=== PATIENT | male | born 1960 | race Caucasian/White ===

== ENCOUNTER 2019-04-05 21:56 | Observation (INO) ==
--- NOTE | 2019-04-05 22:07 | Diag Imaging Result Doc PS360 ---
EXAM: CT HEAD W/O CONTRAST HISTORY: ams TECHNIQUE: CT head without contrast COMPARISON: None. FINDINGS: No parenchymal hemorrhage. No epidural or subdural hematoma. No subarachnoid hemorrhage. No mass identified on this noncontrasted exam. No hydrocephalus. Right mastoid opacification with fluid in the inner anterior. IMPRESSION: 1.No hemorrhage 2.Fluid in the right inner ear and mastoid sinus This exam was performed using automated exposure control, adjustment of mA or kV according to patient size, and/or use of iterative reconstruction technique. Electronically signed by Benitez Henson 04/05/2019 10:05 PM
[2019-04-05 22:28] LABS: BASO# 0.07 X1000 (0.0-0.2); BASO% 0.3 % (0.0-0.8); EOS# 0.76 X1000 (0.0-0.7); EOS% 3.4 % (0.0-10.0); HEMOGLOBIN 15.5 g/dL (14.0-18.0); IMM GRAN# 0.11 X1000 (0.0-0.04); IMM GRAN% 0.5 % (0.0-0.5); LYMPH# 4.45 X1000 (1.2-3.4); LYMPH% 20.1 % (20.5-51.1); MCH 29.4 PG (27-31); MCHC 32.3 g/dL (33-37); MCV 91.1 FL (81-99); MONO# 2.49 X1000 (0.11-0.59); MONO% 11.2 % (1.7-9.3); MPV 10.5 FL (7.4-10.4); NEUT# 14.27 X1000 (1.4-6.5); NEUT% 64.5 % (42.2-75.2); PLT 304 X1000 (130-400); RBC 5.27 XMIL (4.7-6.1); RDW 13.7 % (11.5-14.5); WBC 22.15 X1000 (4.8-10.8)
[2019-04-05 22:30] LABS: BE -17.7 mmoll (-3.0-3.0); BLOOD TYPE ARTERIAL; METHB 1.1 % (0.0-1.5); O2(CT) 21.5 mL/dL (15.0-23.0); O2HB 94.6 % (95.0-99.0); PCO2(98.6) 31 mmHg (35-45); PO2(98.6) 99 mmHg (60-100); SAMPLE BLOOD; SAO2 98.1 % (95.0-100.0); THB 16.1 g/dL (11.5-17.4)
[2019-04-05 22:39] LABS: pH(98.6) 7.13 (7.35-7.45)
[2019-04-05 22:40] LABS: ALLEN TEST YES; MODALITY ROOM AIR
[2019-04-05 23:06] LABS: ALBUMIN 4.5 g/dL (3.5-5.0); CALCIUM 9.9 mg/dL (8.8-10.2); CREATININE 1.7 mg/dL (0.7-1.2); POTASSIUM 4.3 mmol/L (3.5-5.1); TOTAL BILIRUBIN 0.6 mg/dL (0.20-1.00)
[2019-04-05 23:25] LABS: CK INDEX 1.6 (0.0-2.5); CK-MB 3.87 ng/mL (0.0-5.0)
[2019-04-06 01:07] LABS: BE -0.3 mmoll (-3.0-3.0); BLOOD TYPE ARTERIAL; HCO3-(ACT) 24.6 mmoll (20.0-26.0); METHB 1.1 % (0.0-1.5); O2(CT) 20.7 mL/dL (15.0-23.0); O2HB 94.5 % (95.0-99.0); PCO2(98.6) 38 mmHg (35-45); PO2(98.6) 79 mmHg (60-100); SAMPLE BLOOD; SAO2 97.6 % (95.0-100.0); THB 15.6 g/dL (11.5-17.4); pH(98.6) 7.41 (7.35-7.45)
[2019-04-06 01:09] LABS: ALLEN TEST YES; MODALITY ROOM AIR
[2019-04-06 01:35] LABS: UR AMPHETAMINES QUAL NONE DETECTED (NONE DETECT); UR BARBITUATES QUAL NONE DETECTED (NONE DETECT); UR BENZODIAZEPIN QUAL NONE DETECTED (NONE DETECT); UR CANNABINOIDS QUAL NONE DETECTED (NONE DETECT); UR COCAINE QUAL NONE DETECTED (NONE DETECT); UR METHADONE QUAL NONE DETECTED (NONE DETECT); UR METHAMPHETAMINE QUAL NONE DETECTED (NONE DETECT); UR OPIATES QUAL NONE DETECTED (NONE DETECT); UR OXYCODONE QUAL NONE DETECTED (NONE DETECT); UR PCP QUAL NONE DETECTED (NONE DETECT); UR PROPOXYPHENE QUAL NONE DETECTED (NONE DETECT); UR TCA QUAL NONE DETECTED (NONE DETECT)
[2019-04-06 02:18] LABS: ALBUMIN 4.3 g/dL (3.5-5.0); CALCIUM 9.6 mg/dL (8.8-10.2); CREATININE 1.5 mg/dL (0.7-1.2); POTASSIUM 3.6 mmol/L (3.5-5.1); TOTAL BILIRUBIN 0.5 mg/dL (0.20-1.00); TOTAL PROTEIN 7.2 g/dL (6.3-8.3)
--- NOTE | 2019-04-06 03:52 | EKG Report ---
Test Performed on : 04/05/2019 10:07:57 PM Test Reason : emboli Blood Pressure : / mmHG Vent. Rate : 105 BPM Atrial Rate : 105 BPM P-R Int : 140 ms QRS Dur : 092 ms QT Int : 358 ms P-R-T Axes : 068 013 042 degrees QTc Int : 473 ms Sinus tachycardia. Otherwise normal ECG When compared with ECG of 08-OCT-2017 16:24, QT has lengthened Unconfirmed Result
--- NOTE | 2019-04-06 05:36 | Diag Imaging Result Doc PS360 ---
EXAM: CHEST-2 VIEWS HISTORY: cough TECHNIQUE: Two views COMPARISON: 11/11/2018 FINDINGS: The lungs are well expanded. The heart is not enlarged. The vessels are not distended. There are no infiltrates. No pleural effusions. IMPRESSION: No pneumonia Electronically signed by Benitez Henson 04/06/2019 5:34 AM
--- NOTE | 2019-04-06 08:39 | EKG Report ---
Test Performed on : 04/06/2019 07:17:48 AM Test Reason : emboli Blood Pressure : / mmHG Vent. Rate : 086 BPM Atrial Rate : 086 BPM P-R Int : 134 ms QRS Dur : 088 ms QT Int : 378 ms P-R-T Axes : 058 015 034 degrees QTc Int : 452 ms Normal sinus rhythm. Normal ECG When compared with ECG of 05-APR-2019 22:07, (Unconfirmed) No significant change was found Unconfirmed Result
[2019-04-06 08:56] LABS: CALCIUM 9.6 mg/dL (8.8-10.2); CREATININE 1.3 mg/dL (0.7-1.2); TOTAL BILIRUBIN 0.6 mg/dL (0.20-1.00); TOTAL PROTEIN 7.1 g/dL (6.3-8.3)
[2019-04-06 09:10] LABS: BASO# 0.02 X1000 (0.0-0.2); BASO% 0.1 % (0.0-0.8); EOS# 0.13 X1000 (0.0-0.7); EOS% 0.9 % (0.0-10.0); HEMATOCRIT 44.7 % (42.0-52.0); HEMOGLOBIN 14.8 g/dL (14.0-18.0); IMM GRAN# 0.03 X1000 (0.0-0.04); IMM GRAN% 0.2 % (0.0-0.5); LYMPH# 1.34 X1000 (1.2-3.4); LYMPH% 9.6 % (20.5-51.1); MCH 29.1 PG (27-31); MCHC 33.1 g/dL (33-37); MONO# 1.66 X1000 (0.11-0.59); MONO% 11.8 % (1.7-9.3); MPV 10.8 FL (7.4-10.4); NEUT# 10.84 X1000 (1.4-6.5); NEUT% 77.4 % (42.2-75.2); PLT 194 X1000 (130-400); RBC 5.08 XMIL (4.7-6.1); RDW 13.8 % (11.5-14.5); WBC 14.02 X1000 (4.8-10.8)
[2019-04-06 09:14] LABS: CK INDEX 0.7 (0.0-2.5); CK-MB 3.92 ng/mL (0.0-5.0)
[2019-04-06] MEDS ORDERED: ATIVAN IV PRN (10:39)
[2019-04-06] MEDS: COREG PO SCH (12:04)
[2019-04-06] MEDS: AMOXIL PO SCH ×2 (12:04→21:25)
[2019-04-06] MEDS: ZYLOPRIM PO SCH (12:05)
[2019-04-06] MEDS: FLAGYL PO SCH ×2 (12:05→21:26)
[2019-04-06] MEDS: TRADJENTA PO SCH (12:05)
[2019-04-06] MEDS: NS 1,000 ML IV SCH ×2 (12:05→23:10)
--- NOTE | 2019-04-06 12:43 | HISTORY AND PHYSICAL ---
PRIMARY CARE PHYSICIAN: KATHERYN Reyes. CHIEF COMPLAINT: Seizure, new onset. HISTORY OF PRESENTING ILLNESS: This is a 59-year-old male who presents to [facility] ER via EMS after he had a witnessed seizure at home with his . The stated that he began shaking, but was able to talk and asked her to call 911. He apparently, on the first of the week, was diagnosed by Dr. Fay with an Helicobacter pylori, and was also told he had Giardia, was placed on amoxicillin and Biaxin, and started those on Wednesday, and then Wednesday had his first ever seizure-like activity. In the ambulance service, they said he had a full-blown grand mal seizure. He did bite the left side of his tongue, but did not have any urinary incontinence. When he arrived to the emergency room, he was mildly altered with some confusion and disorientation noted. Currently, he is alert and awake and oriented x3, and answers all questions appropriately, and so he was admitted for further evaluation and treatment. PAST MEDICAL HISTORY: Hypertension, hyperlipidemia, GERD, chronic back pain, and neuropathy. PAST SURGICAL HISTORY: None. FAMILY HISTORY: Reviewed and noncontributory. SOCIAL HISTORY: He currently lives with family. Chews tobacco. Denies any alcohol or illicit drug use. ALLERGIES: Codeine. HOME MEDICATIONS: He takes lisinopril/hydrochlorothiazide 20/25 p.o. daily. We will hold his Biaxin 500 mg p.o. every 6 hours. He takes allopurinol 300 mg p.o. daily, amoxicillin 500 mg p.o. b.i.d., Lipitor 40 mg p.o. at bedtime, carvedilol 3.125 mg p.o. daily, lansoprazole 30 mg p.o. daily, and Tradjenta 5 mg p.o. daily. IMAGING AND LABORATORY DATA: Laboratory data showed a white blood cell count of 22.15, hemoglobin 15.5, hematocrit 48, platelets 304,000. Repeat labs this morning showed his white blood cell count was down to 14.02. His ABG on arrival showed a pH of 7.13, pCO2 of 31, PO2 of 99, bicarb 11, and this was on room air, with a lactate of 15.90. Repeat approximately 30 minutes later showed a pH of 7.41, pCO2 of 38, PO2 of 79, bicarb 24.6, lactate was 2.30, and this also was on room air. Sodium of 141, potassium 3.6, chloride 101, CO2 of 25, BUN of 18, creatinine 1.5, glucose 157. Plasma lactate was 2.9. Creatinine this morning is down to 1.3. Creatine kinase on arrival was 249. CK-MB of 3.87. This morning, his creatine kinase was 558, with a CK-MB of 3.92, with a negative troponin of less than 0.010. Urine drug screen showed none detected. Serum plasma alcohol level showed none detected. CT of the head showed no hemorrhage. He did have some fluid in the right inner ear and mastoid sinus. Chest x-ray showed no pneumonia. EKG showed sinus tachycardia at 105. REVIEW OF SYSTEMS: He denied any fever, chills, blurred vision, dizziness, chest pain, coughing, shortness of breath. He denied any abdominal pain, constipation, diarrhea, burning or hurting with urination. On arrival, he did have some confusion and was postictal. PHYSICAL EXAMINATION: VITAL SIGNS: On arrival, he had a temperature of 98.6 degrees, pulse 103, respirations 19, blood pressure 122/71, saturating 92% on room air. GENERAL: This is a 59-year-old male who is lying in the bed and answers questions appropriately. HEENT: Normocephalic, atraumatic. Normal ENT inspection. Oropharynx and nares are clear. Eyes: Pupils are equal, round, and reactive to light and accommodation. Extraocular movements are intact. NECK: Normal inspection. Normal range of motion. LUNGS: Clear to auscultation bilaterally with equal lung expansion and chest wall movement. HEART: Regular rate and rhythm. No murmurs, rubs, or gallops. ABDOMEN: Soft, nontender, nondistended. Bowel sounds are present x4 quadrants. MUSCULOSKELETAL: He had 5/5 strength x4 extremities. NEUROLOGICAL: Cranial nerves II through XII appear grossly intact. ASSESSMENT: 1. New-onset seizure, possibly secondary to antibiotic. 2. Leukocytosis, improved. 3. Recently diagnosed with Helicobacter pylori and Giardia per Dr. Fay of Gastroenterology. PLAN: He was admitted to the medical unit at [place], placed on neurologic checks every 4 hours. Pattern blood sugars with sliding scale insulin. We are going to do an EEG today. Give him Ativan 1 mg IV every 4 hours p.r.n. seizure activity. We are going to start him on Flagyl 500 mg p.o. every 8 hours, and continue his amoxicillin 500 mg p.o. b.i.d. I will stop the Biaxin, and recheck a CBC and BMP in the a.m. Further orders after being seen by attending. Dictated by KATHERYN Delgado for Rodrigo Shine MD cc: KATHERYN Delgado MD Stephanie Weems, CRNP
[2019-04-06] MEDS: HUMULIN R (PARKWAY) SUBQ SCH ×2 (16:17→21:26)
--- NOTE | 2019-04-06 18:45 | PROGRESS NOTE ---
DATE: 04/06/2019 Patient came in with a generalized tonic-clonic seizure last night. Really unclear what initiated it. He has been on H. pylori treatment, but I do not think any of these medications necessarily lower the seizure threshold. Neither do any of his home medications. He denies any alcohol abuse or drug use, but he did have lactic acidosis when he came in, low pH, all consistent with having had a recent seizure. He is a little bit dehydrated, creatinine insufficient. In any case patient was evaluated, placed in observation. We will continue his treatments for his H. pylori and Giardia and workup seizure with EEG and I will pursue MRI. He will need close follow up with Neurology. I explained to him the legal ramifications of having a seizure as far as driving restrictions in the [facility]. The patient is otherwise stable. We will continue to follow. DISPOSITION: Anticipate discharge hopefully in next 24 hours. [id number] encounter note with Caitlyn Bentley. cc: Rodrigo Shine MD MTDD
[2019-04-06] MEDS ORDERED: LIPITOR PO SCH (21:00)
[2019-04-07] MEDS: FLAGYL PO SCH (05:18)
[2019-04-07 05:50] VITALS: BP 133/78
[2019-04-07 06:04] LABS: BASO# 0.02 X1000 (0.0-0.2); BASO% 0.2 % (0.0-0.8); EOS% 3.6 % (0.0-10.0); HEMATOCRIT 41.2 % (42.0-52.0); HEMOGLOBIN 13.6 g/dL (14.0-18.0); IMM GRAN# 0.02 X1000 (0.0-0.04); IMM GRAN% 0.2 % (0.0-0.5); LYMPH# 1.95 X1000 (1.2-3.4); LYMPH% 17.7 % (20.5-51.1); MCH 29.7 PG (27-31); MONO# 1.45 X1000 (0.11-0.59); MONO% 13.1 % (1.7-9.3); MPV 10.7 FL (7.4-10.4); NEUT# 7.19 X1000 (1.4-6.5); NEUT% 65.2 % (42.2-75.2); PLT 193 X1000 (130-400); RBC 4.58 XMIL (4.7-6.1); WBC 11.03 X1000 (4.8-10.8)
[2019-04-07] MEDS: HUMULIN R (PARKWAY) SUBQ SCH (06:15)
[2019-04-07 06:50] LABS: CALCIUM 9.2 mg/dL (8.8-10.2); CREATININE 1.3 mg/dL (0.7-1.2); POTASSIUM 4.4 mmol/L (3.5-5.1)
[2019-04-07] MEDS ORDERED: HYDROCHLOROTHIAZIDE PO SCH (09:00)
[2019-04-07] MEDS ORDERED: PRINIVIL PO SCH (09:00)
[2019-04-07] MEDS ORDERED: NON-FORMULARY MED (Lisinopril/Hydrochlorothiazide [Lisinopril-Hctz 20-25 Mg Tab] 20 MG) PO SCH (09:00)
[2019-04-07] MEDS ORDERED: PRILOSEC PO SCH (09:00)
--- NOTE | 2019-04-07 10:19 | Diag Imaging Result Doc PS360 ---
EXAM: MRI BRAIN W/WO CONTRAST INDICATION: seizure COMPARISON: CT head dated 04/05/2019. No prior MRI brain is available for comparison. FINDINGS: There is no evidence of acute infarct. There is very minimal patchy T2/FLAIR hyperintensity in the periventricular white matter suggesting trace microangiopathy. There is no discrete intracranial mass, mass effect, or intracranial hemorrhage. There is no evidence of abnormal intracranial enhancement. There is a small right maxillary sinus mucus retention cyst and a right mastoid air cell effusion that can also be seen on the prior CT. Surrounding soft tissues and bony structures are essentially unremarkable, otherwise. IMPRESSION: 1.Suggestion of trace white matter microangiopathy. No evidence of acute intracranial pathology. 2.Incidental right mastoid air cell effusion. Electronically signed by Tani De Leon 04/07/2019 10:17 AM
[2019-04-07] MEDS: AMOXIL PO SCH (10:49)
[2019-04-07] MEDS: COREG PO SCH (10:49)
[2019-04-07] MEDS: ZYLOPRIM PO SCH (10:50)
[2019-04-07] MEDS: TRADJENTA PO SCH (10:50)
[2019-04-07] MEDS: NS 1,000 ML IV SCH (10:51)
--- NOTE | 2019-04-07 14:47 | DISCHARGE SUMMARY ---
ADMISSION DATE: 04/06/2019 DISCHARGE DATE: 04/07/2019 The patient came in with a seizure. It sounds like it was basically one episode or possibly one associated with a secondary episode. He has not had any further issues. Medications have made us concerned about possible seizure and the patient has had a negative workup. Head CT, MRI. I am still waiting on his EEG, but preliminarily I think it did not show any major issues. He is being treated for H. pylori and Giardia, but all that seems to be stable. He has got some mild renal insufficiency. I am not going to change any of his medications, kind of see how he does long-term and we will continue to follow. This is a [id number] encounter note with Caitlyn Bentley. cc: Rodrigo Shine MD
--- NOTE | 2019-04-07 14:53 | DISCHARGE SUMMARY ---
ADMISSION DATE: 04/06/2019 DISCHARGE DATE: 04/07/2019 PRIMARY CARE PHYSICIAN: KATHERYN Reyes. ADMISSION DIAGNOSES: 1. New onset seizures, possibly secondary to new antibiotic. 2. Leukocytosis, improved. 3. Recently diagnosed with a Helicobacter pylori and Giardia per Dr. Fay of Gastroenterology. DISCHARGE DIAGNOSES: 1. New onset seizures, possibly secondary to new antibiotic. 2. Leukocytosis, improved. 3. Recently diagnosed with a Helicobacter pylori and Giardia per Dr. Fay of Gastroenterology. SUMMARY OF FINDINGS: This is a 59-year-old male who presented to the ER via EMS after he had a witnessed seizure at home with his . Once he got into the ambulance, he had a full-blown grand mal seizure according to the ambulance service. By the time he arrived to the emergency room, he was alert and oriented x3. He did have some mild confusion and disorientation noted. He was noted to have bit the left side of his tongue, but did not have any urinary incontinence. He was admitted, placed on neuro checks q. 4 hours. We did a brain MRI that showed suggestion of trace white matter, micro angiopathy, but no evidence of acute intracranial pathology. We did an EEG also, but that is pending at this time. He has had no further seizure activity and is felt to be in stable condition and can be discharged home today. DISCHARGE MEDICATIONS: Continue his allopurinol 300 mg p.o. daily, amoxicillin 500 mg p.o. b.i.d., atorvastatin 40 mg p.o. at bedtime, carvedilol 3.125 mg p.o. b.i.d., lansoprazole 30 mg p.o. b.i.d., Tradjenta 5 mg p.o. daily, Biaxin 500 mg p.o. 4 times daily, lovastatin 20 mg p.o. daily, and Flagyl 250 mg p.o. t.i.d. FOLLOWUP: He will need to follow up with his primary care physician in the next 1 to 2 weeks and also call [facility] to follow up with Dr. Multani and his first available appointment. TIME SPENT: 35 minute discharge for Nael Reeves. Dictated by KATHERYN Delgado for Rodrigo Shine MD cc: Caitlyn KATHERYN Bentley MD Stephanie Weems, CRNP
== END 2019-04-07 12:44 | disposition home or self-care (01) ==
LOC: P.ED 21:56 → P.MEDSURG 21:56
PROVIDERS: ATTEND Internal Medicine